=== PATIENT | female | born 1995 | race African-American/Black ===

== ENCOUNTER 2021-01-10 06:43 | Inpatient (IN) | payer MEDICAID ==
[~2021-01-10] VITALS: Ht 167.6 cm; Wt 98.1 kg
[2021-01-10] MEDS ORDERED: SODIUM CHLORIDE 0.9% 1,000 ML IV ONE ×2 (07:15→14:00)
[2021-01-10 07:28] LABS: BASOPHILS % 0.5 % (0.0-2.0); EOSINOPHILS % 0.6 % (0.0-5.0); HEMATOCRIT. 45.6 % (36.0-48.0); HEMOGLOBIN. 14.9 g/dL (12.0-16.0); LYMPHOCYTES % 22.6 % (20.0-50.0); MEAN CORPUSCULAR HEMOGLOBIN 28.7 pg (28.0-32.0); MEAN PLATELET VOLUME 8.3 fl (7.4-10.4); MONOCYTES % 4.6 % (2.0-8.0); NEUTROPHILS % 71.7 % (40.0-76.0); PLATELET 161 x1000/uL (130-400); RED BLOOD CELL COUNT 5.18 mill/uL (4.2-5.4); RED CELL DISTRIBUTION WIDTH 13.3 % (11.6-14.6)
[2021-01-10 07:39] LABS: INR 1.3
[2021-01-10 07:45] LABS: CHLORIDE 105 mEq/L (98-107)
[2021-01-10 08:48] LABS: CLARITY URINE TURBID (CLEAR); COLOR URINE DK YELLOW (YELLOW); KETONES URINE 1+ (NEGATIVE); LEUKOCYTE ESTERASE URINE NEGATIVE (NEGATIVE); NITRITE URINE NEGATIVE (NEGATIVE); OCCULT BLOOD URINE 2+ (NEGATIVE); PROTEIN URINE 4+ (NEGATIVE); SPECIFIC GRAVITY URINE 1.017 (1.005-1.030)
[2021-01-10 09:07] LABS: B-HCG QUANTITATIVE 87359 mIU/mL (<3)
[2021-01-10 10:00] VITALS: BP 96/41
[2021-01-10] MEDS ORDERED: LACTATED RINGERS 1,000 ML IV SCH ×2 (10:30→14:00)
[2021-01-10] MEDS: LACTATED RINGERS 1,000 ML IV SCH ×4 (10:45→20:49)
[2021-01-10] MEDS ORDERED: FENTANYL CITRATE/PF 50MCG/ML 2ML VIAL ONE ×2 (11:23→13:13)
[2021-01-10] MEDS ORDERED: ROCURONIUM BROMIDE 10MG/ML VIAL 5ML IV ONE ×3 (11:23→13:26)
[2021-01-10] MEDS ORDERED: MIDAZOLAM HCL 2 MG/2 ML VIAL ONE ×2 (11:23→12:24)
[2021-01-10] MEDS ORDERED: PROPOFOL 200MG/20ML VIAL IV ONE (11:23)
[2021-01-10] MEDS ORDERED: NEOSTIGMINE METHYLSULFATE 1MG/ML 10 ML VIAL ONE (11:23)
[2021-01-10] MEDS ORDERED: ONDANSETRON HCL 4MG/2ML INJ ONE (11:24)
[2021-01-10] MEDS ORDERED: SUCCINYLCHOLINE CHLORIDE 200MG/10ML IV ONE (11:24)
[2021-01-10] MEDS ORDERED: CEFAZOLIN SODIUM 1000MG/VIAL ONE (11:24)
[2021-01-10] MEDS ORDERED: SODIUM CHLORIDE 0.9% 10ML VIAL ONE (11:24)
[2021-01-10] MEDS ORDERED: GLYCOPYRROLATE 0.2 MG/ML 2ML VIAL ONE (11:24)
[2021-01-10] MEDS ORDERED: PHENYLEPHRINE HCL 10 MG/ML 1ML (IV VIAL) IV ONE (11:24)
[2021-01-10] MEDS ORDERED: METOCLOPRAMIDE HCL 10MG/2ML VIAL ONE (11:24)
[2021-01-10 11:59] LABS: EOSINOPHILS % 0.1 % (0.0-5.0); HEMATOCRIT. 33.7 % (36.0-48.0); HEMOGLOBIN. 11.6 g/dL (12.0-16.0); LYMPHOCYTES % 8.2 % (20.0-50.0); MEAN CORPUSCULAR HEMOGLOBIN 29.3 pg (28.0-32.0); MEAN CORPUSCULAR VOLUME 85.3 fL (81.0-99.0); MEAN PLATELET VOLUME 7.6 fl (7.4-10.4); MONOCYTES % 6.2 % (2.0-8.0); NEUTROPHILS % 85.5 % (40.0-76.0); PLATELET 143 x1000/uL (130-400); RED BLOOD CELL COUNT 3.95 mill/uL (4.2-5.4)
[2021-01-10 12:12] LABS: BG BASE EXCESS -13.4 mmol/L (-2.0-2.0); BG CARBOXYHEMOGLOBIN 0.3 % (0.5-1.5); BG DEOXYHEMOGLOBIN 0.8 % (0.0-5.0); BG FRACTION INSPIRED OXYGEN 100; BG HCO3 ACT 16.4 mmol/L (22.0-26.0); BG METHEMOGLOBIN 0.3 % (0.0-1.5); BG OXYGEN SATURATION 99.2 % (92.0-98.5); BG OXYHEMOGLOBIN 98.6 % (94.0-97.0); BG PCO2 55.4 mmHg (35.0-45.0); BG PO2 319.9 mmHg (75.0-100.0); BG SAMPLE SITE ALINE; BG TOTAL HEMOGLOBIN 12.5 g/dL (12.0-18.0)
[2021-01-10] MEDS ORDERED: SODIUM BICARBONATE 8.4% 1 MEQ/ML 50ML SYR IV ONE ×2 (12:14→15:15)
[2021-01-10] MEDS ORDERED: ALBUMIN HUMAN 12.5G/250ML (5%) IV ONE (12:34)
[2021-01-10 12:38] LABS: CHLORIDE 112 mEq/L (98-107)
[2021-01-10 12:40] LABS: INR 1.5; PARTIAL THROMBOPLASTIN TIME 33.7 sec (23.4-31.0); PROTHROMBIN TIME 15.2 sec (9.6-11.0)
[2021-01-10 13:12] LABS: BG BASE EXCESS -7.9 mmol/L (-2.0-2.0); BG CARBOXYHEMOGLOBIN 0.3 % (0.5-1.5); BG DEOXYHEMOGLOBIN 0.9 % (0.0-5.0); BG FRACTION INSPIRED OXYGEN 100; BG HCO3 ACT 20.1 mmol/L (22.0-26.0); BG METHEMOGLOBIN 0.2 % (0.0-1.5); BG OXYGEN SATURATION 99.1 % (92.0-98.5); BG OXYHEMOGLOBIN 98.6 % (94.0-97.0); BG PH 7.197 (7.350-7.450); BG PO2 426.6 mmHg (75.0-100.0); BG SAMPLE SITE ALINE; BG TOTAL HEMOGLOBIN 10.1 g/dL (12.0-18.0); BG VENT MODE VENT - AC
[2021-01-10] MEDS ORDERED: ONDANSETRON HCL 4MG/2ML INJ IV PRN (14:00)
[2021-01-10] MEDS ORDERED: MEPERIDINE HCL/PF 25MG/ML CPJ IV PRN ×2 (14:00)
[2021-01-10] MEDS ORDERED: MORPHINE SULFATE 2 MG/ML CPJ (NOT FOR IM USE) IV PRN (14:00)
[2021-01-10] MEDS ORDERED: HYDROMORPHONE HCL/PF 2MG/ML (OR) ONE (14:14)
[2021-01-10] MEDS ORDERED: NALOXONE HCL 0.4MG/ML VIAL IV PRN (14:30)
[2021-01-10 14:31] LABS: BG CARBOXYHEMOGLOBIN 0.3 % (0.5-1.5); BG DEOXYHEMOGLOBIN 0.9 % (0.0-5.0); BG FRACTION INSPIRED OXYGEN 100; BG HCO3 ACT 18.5 mmol/L (22.0-26.0); BG METHEMOGLOBIN 0.4 % (0.0-1.5); BG OXYGEN SATURATION 99.1 % (92.0-98.5); BG OXYHEMOGLOBIN 98.4 % (94.0-97.0); BG PCO2 46.9 mmHg (35.0-45.0); BG PH 7.214 (7.350-7.450); BG PO2 475.8 mmHg (75.0-100.0); BG SAMPLE SITE ALINE; BG TOTAL HEMOGLOBIN 10.4 g/dL (12.0-18.0); BG TOTAL RESPIRATORY RATE 14 b/min; BG VENT MODE VENT - AC
[2021-01-10] MEDS: HYDROMORPHONE HCL/PF 2MG/ML CPJ IV PRN ×2 (14:38→15:00)
[2021-01-10 15:32] LABS: HEMATOCRIT. 30.6 % (36.0-48.0); HEMOGLOBIN. 10.6 g/dL (12.0-16.0); MEAN CORPUSCULAR HEMOGLOBIN 29.8 pg (28.0-32.0); MEAN CORPUSCULAR VOLUME 85.8 fL (81.0-99.0); MEAN PLATELET VOLUME 7.4 fl (7.4-10.4); PLATELET 121 x1000/uL (130-400); RED BLOOD CELL COUNT 3.57 mill/uL (4.2-5.4)
[2021-01-10 15:40] LABS: CHLORIDE 112 mEq/L (98-107)
[2021-01-10 15:50] LABS: INR 1.5; PARTIAL THROMBOPLASTIN TIME 34.7 sec (23.4-31.0); PROTHROMBIN TIME 15.4 sec (9.6-11.0)
[2021-01-10] MEDS: PROPOFOL 10MG/ML 100ML 100 ML IV PRN ×2 (15:55→20:35)
[2021-01-10 16:01] LABS: PLATELET ESTIMATE DECREASED
[2021-01-10 16:15] LABS: BG BASE EXCESS -5.3 mmol/L (-2.0-2.0); BG CARBOXYHEMOGLOBIN 0.3 % (0.5-1.5); BG DEOXYHEMOGLOBIN 2.6 % (0.0-5.0); BG FRACTION INSPIRED OXYGEN 40; BG HCO3 ACT 19.8 mmol/L (22.0-26.0); BG METHEMOGLOBIN 0.2 % (0.0-1.5); BG OXYGEN SATURATION 97.4 % (92.0-98.5); BG OXYHEMOGLOBIN 96.9 % (94.0-97.0); BG PCO2 36.6 mmHg (35.0-45.0); BG PO2 111.5 mmHg (75.0-100.0); BG SAMPLE SITE ALINE; BG TOTAL HEMOGLOBIN 11.2 g/dL (12.0-18.0); BG TOTAL RESPIRATORY RATE 20 b/min; BG VENT MODE VENT - AC
[2021-01-10] MEDS ORDERED: CEFAZOLIN 1000MG PREMIX 50 ML IV SCH (16:30)
[2021-01-10] MEDS ORDERED: MAGNESIUM 2 G PREMIX 50 ML IV ONE (17:30)
[2021-01-10 17:36] LABS: OPIATES URINE SCREEN NEGATIVE (NEGATIVE)
[2021-01-10 17:37] LABS: *AMPHETAMINES SCREEN URINE NEGATIVE (NEGATIVE); *BARBITURATES SCREEN URINE NEGATIVE (NEGATIVE); *COCAINE SCREEN URINE NEGATIVE (NEGATIVE); CANNABINOID URINE SCREEN NEGATIVE (NEGATIVE); METHADONE URINE SCREEN NEGATIVE (NEGATIVE); PHENCYCLIDINE URINE SCREEN NEGATIVE (NEGATIVE)
[2021-01-10 17:44] LABS: *BENZODIAZEPINES SCREEN URINE PRESUMTIVE POSITIVE (NEGATIVE)
[2021-01-10 19:55] LABS: BASOPHILS % 0.1 % (0.0-2.0); HEMATOCRIT. 28.9 % (36.0-48.0); HEMOGLOBIN. 10.1 g/dL (12.0-16.0); LYMPHOCYTES % 10.2 % (20.0-50.0); MEAN CORPUSCULAR HEMOGLOBIN 29.8 pg (28.0-32.0); MEAN CORPUSCULAR VOLUME 85.3 fL (81.0-99.0); MEAN PLATELET VOLUME 7.3 fl (7.4-10.4); MONOCYTES % 4.6 % (2.0-8.0); NEUTROPHILS % 85.1 % (40.0-76.0); PLATELET 106 x1000/uL (130-400); RED BLOOD CELL COUNT 3.39 mill/uL (4.2-5.4); RED CELL DISTRIBUTION WIDTH 13.3 % (11.6-14.6)
[2021-01-10 20:42] LABS: BG BASE EXCESS -5.7 mmol/L (-2.0-2.0); BG CARBOXYHEMOGLOBIN 0.3 % (0.5-1.5); BG DEOXYHEMOGLOBIN 2.7 % (0.0-5.0); BG FRACTION INSPIRED OXYGEN 40; BG HCO3 ACT 17.6 mmol/L (22.0-26.0); BG METHEMOGLOBIN 0.2 % (0.0-1.5); BG OXYGEN SATURATION 97.3 % (92.0-98.5); BG OXYHEMOGLOBIN 96.8 % (94.0-97.0); BG PCO2 27.6 mmHg (35.0-45.0); BG PH 7.422 (7.350-7.450); BG PO2 111.1 mmHg (75.0-100.0); BG SAMPLE SITE ALINE; BG TOTAL HEMOGLOBIN 10.6 g/dL (12.0-18.0); BG TOTAL RESPIRATORY RATE 30 b/min; BG VENT MODE VENT - AC
[2021-01-10] MEDS ORDERED: CEFEPIME 2,000 MG in DEXT 5% WATER 100 ML IV SCH (21:00)
[2021-01-11] VITALS (31 sets, daily range): BP systolic 101–153; BP diastolic 59–89
[2021-01-11] MEDS: PROPOFOL 10MG/ML 100ML 100 ML IV PRN ×2 (03:16→08:58)
[2021-01-11 08:59] LABS: INR 1.4; PROTHROMBIN TIME 14.4 sec (9.6-11.0)
[2021-01-11 09:04] LABS: BG BASE EXCESS -2.8 mmol/L (-2.0-2.0); BG CARBOXYHEMOGLOBIN 0.2 % (0.5-1.5); BG DEOXYHEMOGLOBIN 1.7 % (0.0-5.0); BG HCO3 ACT 20.5 mmol/L (22.0-26.0); BG METHEMOGLOBIN 0.3 % (0.0-1.5); BG OXYGEN SATURATION 98.3 % (92.0-98.5); BG OXYHEMOGLOBIN 97.8 % (94.0-97.0); BG PCO2 30.1 mmHg (35.0-45.0); BG PO2 147.5 mmHg (75.0-100.0); BG SAMPLE SITE ALINE; BG TOTAL HEMOGLOBIN 10.3 g/dL (12.0-18.0); BG VENT MODE VENT - AC
[2021-01-11 09:16] LABS: CHLORIDE 111 mEq/L (98-107)
[2021-01-11] MEDS ORDERED: IPRATROPIUM/ALBUTEROL 0.5-3(2.5)MG/3ML NEB HHN PRN (10:15)
[2021-01-11 10:30] LABS: BASOPHILS % 0.2 % (0.0-2.0); EOSINOPHILS % 0.1 % (0.0-5.0); HEMATOCRIT. 27.5 % (36.0-48.0); HEMOGLOBIN. 9.6 g/dL (12.0-16.0); LYMPHOCYTES % 19.1 % (20.0-50.0); MEAN CORPUSCULAR HEMOGLOBIN 29.6 pg (28.0-32.0); MEAN CORPUSCULAR VOLUME 85.2 fL (81.0-99.0); MEAN PLATELET VOLUME 8.6 fl (7.4-10.4); MONOCYTES % 5.6 % (2.0-8.0); PLATELET 89 x1000/uL (130-400); RED BLOOD CELL COUNT 3.23 mill/uL (4.2-5.4); RED CELL DISTRIBUTION WIDTH 13.2 % (11.6-14.6)
[2021-01-11 10:56] LABS: BG BASE EXCESS -3.9 mmol/L (-2.0-2.0); BG CARBOXYHEMOGLOBIN 0.2 % (0.5-1.5); BG FRACTION INSPIRED OXYGEN 35; BG HCO3 ACT 19.1 mmol/L (22.0-26.0); BG METHEMOGLOBIN 0.4 % (0.0-1.5); BG OXYHEMOGLOBIN 96.4 % (94.0-97.0); BG PCO2 28.2 mmHg (35.0-45.0); BG PH 7.449 (7.350-7.450); BG PO2 101.6 mmHg (75.0-100.0); BG SAMPLE SITE ALINE; BG TOTAL HEMOGLOBIN 10.4 g/dL (12.0-18.0); BG TOTAL RESPIRATORY RATE 17 b/min; BG VENT MODE VENT - CPAP
[2021-01-11] MEDS: LACTATED RINGERS 1,000 ML IV SCH ×2 (14:41→22:46)
[2021-01-11] MEDS ORDERED: HYDROCODONE/ACETAMINOPHEN 5/325MG TABLET PO PRN (15:15)
[2021-01-11] MEDS ORDERED: IBUPROFEN 800MG TABLET PO PRN (15:15)
[2021-01-11] MEDS: ONDANSETRON HCL 4MG/2ML INJ IV PRN (15:49)
[2021-01-11] MEDS: HYDROCODONE/ACETAMINOPHEN 5/325MG TABLET PO PRN (20:45)
[2021-01-11] MEDS: CEFEPIME 2,000 MG in DEXT 5% WATER 100 ML IV SCH (20:45)
[2021-01-12] VITALS (31 sets, daily range): BP systolic 103–125; BP diastolic 50–86
[2021-01-12] MEDS: HYDROCODONE/ACETAMINOPHEN 5/325MG TABLET PO PRN (05:08)
[2021-01-12 05:50] LABS: BASOPHILS % 0.5 % (0.0-2.0); EOSINOPHILS % 0.6 % (0.0-5.0); HEMOGLOBIN. 8.9 g/dL (12.0-16.0); LYMPHOCYTES % 18.7 % (20.0-50.0); MEAN CORPUSCULAR HEMOGLOBIN 29.4 pg (28.0-32.0); MEAN CORPUSCULAR VOLUME 85.7 fL (81.0-99.0); MONOCYTES % 4.9 % (2.0-8.0); NEUTROPHILS % 75.3 % (40.0-76.0); PLATELET 78 x1000/uL (130-400); RED BLOOD CELL COUNT 3.03 mill/uL (4.2-5.4); RED CELL DISTRIBUTION WIDTH 13.4 % (11.6-14.6)
[2021-01-12] MEDS: LACTATED RINGERS 1,000 ML IV SCH ×3 (06:25→22:30)
[2021-01-12 08:23] LABS: CHLORIDE 109 mEq/L (98-107)
[2021-01-12] MEDS: CEFEPIME 2,000 MG in DEXT 5% WATER 100 ML IV SCH (09:28)
[2021-01-12] MEDS: ONDANSETRON HCL 4MG/2ML INJ IV PRN (15:28)
[2021-01-13] VITALS: BP 118/76
[2021-01-13 04:00] VITALS: BP 110/78
[2021-01-13] MEDS ORDERED: REGADENOSON 0.4 MG/5 ML IV NR (06:00)
[2021-01-13] MEDS: LACTATED RINGERS 1,000 ML IV SCH ×3 (06:30→21:00)
[2021-01-13] MEDS ORDERED: ACETAMINOPHEN 325MG TABLET PO PRN (07:00)
[2021-01-13 08:00] VITALS: BP 128/84
[2021-01-13 12:00] VITALS: BP 127/87
[2021-01-13] MEDS: ONDANSETRON HCL 4MG/2ML INJ IV PRN ×2 (13:25→20:59)
[2021-01-13 16:00] VITALS: BP 124/60
[2021-01-13 20:00] VITALS: BP 118/80
[2021-01-14] VITALS: BP 108/64
[2021-01-14 04:00] VITALS: BP 115/80
[2021-01-14] MEDS ORDERED: HYDROCODONE/ACETAMINOPHEN 5/325MG TABLET PO PRN (06:45)
[2021-01-14] MEDS: LACTATED RINGERS 1,000 ML IV SCH ×2 (06:56→13:32)
[2021-01-14 08:00] VITALS: BP 128/81
[2021-01-14 09:15] LABS: BASOPHILS % 0.4 % (0.0-2.0); HEMATOCRIT. 25.8 % (36.0-48.0); HEMOGLOBIN. 8.8 g/dL (12.0-16.0); LYMPHOCYTES % 12.6 % (20.0-50.0); MEAN CORPUSCULAR HEMOGLOBIN 29.4 pg (28.0-32.0); MEAN CORPUSCULAR VOLUME 85.8 fL (81.0-99.0); MEAN PLATELET VOLUME 8.7 fl (7.4-10.4); MONOCYTES % 4.5 % (2.0-8.0); NEUTROPHILS % 81.5 % (40.0-76.0); PLATELET 133 x1000/uL (130-400); RED BLOOD CELL COUNT 3.01 mill/uL (4.2-5.4); RED CELL DISTRIBUTION WIDTH 13.2 % (11.6-14.6)
[2021-01-14 12:00] VITALS: BP 120/79
[2021-01-14 16:00] VITALS: BP 122/78
[2021-01-14 20:00] VITALS: BP 128/79
[2021-01-14] MEDS ORDERED: IOHEXOL-350 100 ML BOTTLE ONE (23:21)
[2021-01-15] VITALS (47 sets, daily range): BP systolic 109–140; BP diastolic 61–91
[2021-01-15] MEDS: LACTATED RINGERS 1,000 ML IV SCH ×4 (00:47→21:57)
[2021-01-15] MEDS ORDERED: ENOXAPARIN 100MG/ML SYR SUBCUT SCH (01:00)
[2021-01-15] MEDS: ENOXAPARIN 100MG/ML SYR SUBCUT SCH ×2 (04:36→15:26)
[2021-01-15] MEDS: THROAT LOZENGES-BENZOCAINE/MENTH/CETYLPYRD CL LOZENGES MM PRN ×2 (10:34→17:18)
[2021-01-16] VITALS (45 sets, daily range): BP systolic 105–143; BP diastolic 55–97
[2021-01-16] MEDS: THROAT LOZENGES-BENZOCAINE/MENTH/CETYLPYRD CL LOZENGES MM PRN (00:56)
[2021-01-16] MEDS: ONDANSETRON HCL 4MG/2ML INJ IV PRN ×2 (02:02→21:47)
[2021-01-16] MEDS: ENOXAPARIN 100MG/ML SYR SUBCUT SCH ×2 (04:41→16:53)
[2021-01-16 05:20] LABS: CHLORIDE 105 mEq/L (98-107)
[2021-01-16 05:26] LABS: BASOPHILS % 0.4 % (0.0-2.0); EOSINOPHILS % 1.9 % (0.0-5.0); HEMATOCRIT. 25.1 % (36.0-48.0); LYMPHOCYTES % 15.7 % (20.0-50.0); MEAN CORPUSCULAR HEMOGLOBIN 29.8 pg (28.0-32.0); MEAN CORPUSCULAR VOLUME 82.9 fL (81.0-99.0); MEAN PLATELET VOLUME 8.9 fl (7.4-10.4); MONOCYTES % 5.7 % (2.0-8.0); NEUTROPHILS % 76.3 % (40.0-76.0); PLATELET 164 x1000/uL (130-400); RED BLOOD CELL COUNT 3.03 mill/uL (4.2-5.4); RED CELL DISTRIBUTION WIDTH 13.1 % (11.6-14.6)
[2021-01-16] MEDS: LACTATED RINGERS 1,000 ML IV SCH ×3 (05:46→22:45)
[2021-01-16] MEDS ORDERED: POTASSIUM CHLORIDE 20MEQ TABLET SR PO NR (08:30)
[2021-01-17] VITALS (35 sets, daily range): BP systolic 114–164; BP diastolic 39–94
[2021-01-17] MEDS: ENOXAPARIN 100MG/ML SYR SUBCUT SCH ×2 (03:34→15:23)
[2021-01-17 05:32] LABS: BASOPHILS % 0.4 % (0.0-2.0); EOSINOPHILS % 1.7 % (0.0-5.0); HEMATOCRIT. 25.4 % (36.0-48.0); HEMOGLOBIN. 8.8 g/dL (12.0-16.0); MEAN CORPUSCULAR HEMOGLOBIN 29.4 pg (28.0-32.0); MEAN CORPUSCULAR VOLUME 85.2 fL (81.0-99.0); MEAN PLATELET VOLUME 10.1 fl (7.4-10.4); MONOCYTES % 6.3 % (2.0-8.0); NEUTROPHILS % 71.6 % (40.0-76.0); PLATELET 193 x1000/uL (130-400); RED BLOOD CELL COUNT 2.98 mill/uL (4.2-5.4); RED CELL DISTRIBUTION WIDTH 13.3 % (11.6-14.6)
[2021-01-17 05:40] LABS: CHLORIDE 104 mEq/L (98-107)
[2021-01-17] MEDS: LACTATED RINGERS 1,000 ML IV SCH ×2 (06:30→14:30)
[2021-01-17] MEDS ORDERED: GUAIFENESIN-DM 200MG-20MG/10ML UDC PO SCH (11:30)
[2021-01-17] MEDS ORDERED: POTASSIUM CHLORIDE 20MEQ TABLET SR PO SCH (11:30)
[2021-01-17] MEDS ORDERED: LOV120 SQ (11:35)
[2021-01-17] MEDS ORDERED: GUAI237L83 MT (11:37)
== END 2021-01-17 17:30 | disposition home or self-care (01) | DRG 547 ==
LOC: ER 06:57 → ORIP 08:02 → EDBEDREQTM 08:43 → EDBEDREQ 08:43 → EDBEDREQSVC 08:43 → ENRESERV 08:56 → ER 10:20 → 5EST 01-11 12:55 → 8EST NSY 01-12 13:21 → 8EST 01-12 14:00 → 8WST 01-12 15:22 → MICUSO 01-15 05:16
PROVIDERS: ADMIT Obstetrics & Gynecology; ATTEND Obstetrics & Gynecology
PROC: 0UB90ZZ Excision of Uterus, Open Approach (ICD-10-PCS; principal; 2021-01-10)
PROC: 5A1935Z Respiratory Ventilation, Less than 24 Consecutive Hours (ICD-10-PCS; 2021-01-10)
PROC: 0BH17EZ Insertion of Endotracheal Airway into Trachea, Via Natural or Artificial Opening (ICD-10-PCS; 2021-01-10)
DX: O00.90 Unspecified ectopic pregnancy without intrauterine pregnancy (principal); J96.01 Acute respiratory failure with hypoxia; I26.99 Other pulmonary embolism without acute cor pulmonale; I21.4 Non-ST elevation (NSTEMI) myocardial infarction; E87.2 Acidosis; D69.6 Thrombocytopenia, unspecified; I27.20 Pulmonary hypertension, unspecified; O99.111 Other diseases of the blood and blood-forming organs and certain disorders involving the immune mechanism complicating pregnancy, first trimester; O99.411 Diseases of the circulatory system complicating pregnancy, first trimester; D25.9 Leiomyoma of uterus, unspecified; O26.891 Other specified pregnancy related conditions, first trimester; O25.11 Malnutrition in pregnancy, first trimester; O34.11 Maternal care for benign tumor of corpus uteri, first trimester; O99.281 Endocrine, nutritional and metabolic diseases complicating pregnancy, first trimester; O99.511 Diseases of the respiratory system complicating pregnancy, first trimester; O99.011 Anemia complicating pregnancy, first trimester; Z20.822 Contact with and (suspected) exposure to COVID-19; D50.0 Iron deficiency anemia secondary to blood loss (chronic); R74.01 Elevation of levels of liver transaminase levels; E87.6 Hypokalemia; I36.1 Nonrheumatic tricuspid (valve) insufficiency; I31.3 Pericardial effusion (noninflammatory); J90 Pleural effusion, not elsewhere classified; J98.11 Atelectasis; Z87.730 Personal history of (corrected) cleft lip and palate; Z3A.01 Less than 8 weeks gestation of pregnancy
CPT/HCPCS: 36415; 36600; 71045; 71275; 76700; 76801; 80048; 80053; 80305; 81003; 82375; 82805; 83605; 83615; 83735; 83880; 84145; 84478; 84484; 84702; 85025; 85379; 86038; 86850; 86900; 86920; 87426; 93005; 93306; 93970; 94002; 99291; G0378; J0330; J0690; J0692; J1170; J1650; J2250; J2370; J2405; J2704; J2710; J2765; J3010; J3475; J3490; J7030; J7060; P9041; Q9967

== ENCOUNTER 2021-02-04 21:49 | Emergency (ER) | payer SELFPAY ==
[~2021-02-04] VITALS: Ht 165.1 cm; Wt 87.0 kg
[~2021-02-04 21:49] MED LIST: GUAI237L83 MT; LOV120 SQ
[2021-02-04] MEDS ORDERED: SODIUM CHLORIDE 0.9% 1,000 ML IV ONE (22:45)
[2021-02-04 23:27] LABS: CHLORIDE 105 mEq/L (98-107); INR 1.3; PROTHROMBIN TIME 13.3 sec (9.6-11.0)
[2021-02-04 23:29] LABS: BASOPHILS % 0.6 % (0.0-2.0); EOSINOPHILS % 2.7 % (0.0-5.0); HEMATOCRIT. 36.3 % (36.0-48.0); LYMPHOCYTES % 18.4 % (20.0-50.0); MEAN CORPUSCULAR HEMOGLOBIN 29.1 pg (28.0-32.0); MEAN CORPUSCULAR VOLUME 87.6 fL (81.0-99.0); MEAN PLATELET VOLUME 8.4 fl (7.4-10.4); MONOCYTES % 5.3 % (2.0-8.0); PLATELET 278 x1000/uL (130-400); RED BLOOD CELL COUNT 4.14 mill/uL (4.2-5.4); RED CELL DISTRIBUTION WIDTH 14.5 % (11.6-14.6)
[2021-02-04 23:49] LABS: B-HCG QUANTITATIVE 7945 mIU/mL (<3)
[2021-02-04 23:50] LABS: CLARITY URINE CLOUDY (CLEAR); COLOR URINE RED (YELLOW); KETONES URINE NEGATIVE (NEGATIVE); LEUKOCYTE ESTERASE URINE 1+ (NEGATIVE); NITRITE URINE NEGATIVE (NEGATIVE); OCCULT BLOOD URINE 3+ (NEGATIVE); PROTEIN URINE 2+ (NEGATIVE); SPECIFIC GRAVITY URINE 1.024 (1.005-1.030)
[2021-02-05] MEDS ORDERED: ACETAMINOPHEN 325MG TABLET PO ONE (00:45)
[2021-02-05 02:27] VITALS: BP 118/68
== END 2021-02-05 02:38 | disposition home or self-care (01) ==
LOC: ER 21:49 → CANBEDREQ 02-05 06:23
DX: O02.1 Missed abortion (principal)
CPT/HCPCS: 36415; 76801; 76817; 80053; 81003; 81025; 84702; 85025; 85610; 86850; 86900; 86901; 96360; 99284; J7030